=== PATIENT | male | born 1985 | race Caucasian/White ===

== ENCOUNTER → 2021-10-13 10:53 | Outpatient (BNVA) | payer OTHER, SELFPAY | PROVIDERS: Visit Provider Specialist | DX: G43.711 Chronic migraine without aura, intractable, with status migrainosus (principal); R56.9 Unspecified convulsions; R05.4 Cough syncope; F17.200 Nicotine dependence, unspecified, uncomplicated | CPT/HCPCS: 99204 ==

== ENCOUNTER → 2022-02-16 12:12 | Outpatient (BNVA) | payer OTHER, SELFPAY | PROVIDERS: Visit Provider Specialist | DX: G43.711 Chronic migraine without aura, intractable, with status migrainosus (principal); R56.9 Unspecified convulsions; R55 Syncope and collapse | CPT/HCPCS: 99214 ==

== ENCOUNTER → 2022-03-04 09:54 | Outpatient (BNVA) | payer OTHER, SELFPAY | PROVIDERS: Referring Provider Specialist; Visit Provider Specialist | DX: R56.9 Unspecified convulsions (principal); R05.4 Cough syncope | CPT/HCPCS: 95812; 95816 ==

== ENCOUNTER → 2022-07-27 14:59 | Outpatient (BNVA) | payer OTHER, SELFPAY | PROVIDERS: Visit Provider Specialist | DX: R56.9 Unspecified convulsions (principal); R05.4 Cough syncope; G43.711 Chronic migraine without aura, intractable, with status migrainosus | CPT/HCPCS: 99213 ==

== ENCOUNTER → 2023-03-03 15:20 | Outpatient (BNVA) | payer OTHER, SELFPAY | PROVIDERS: Visit Provider Specialist | DX: R56.9 Unspecified convulsions; R05.4 Cough syncope; G43.711 Chronic migraine without aura, intractable, with status migrainosus; F43.10 Post-traumatic stress disorder, unspecified | CPT/HCPCS: 99214 ==